=== PATIENT | female | born 1990 | race American Indian/Alaskan Native ===

== ENCOUNTER 2020-06-20 14:11 | Inpatient (IN) | payer OTHER, SELFPAY ==
[2020-06-20] MEDS ORDERED: OXYTOCIN DRIP 30,000 MILLIUNITS/500 ML BAG IV ONE (14:55)
[2020-06-20] MEDS ORDERED: MINERAL OIL 30 ML ORAL LIQD ONE (14:55)
[2020-06-20] MEDS ORDERED: LIDOCAINE (2%) 20 MG/1 ML VIAL 20 ML MDV INFILTRATI ONE ×2 (14:56→15:20)
[2020-06-20] MEDS ORDERED: LACTATED RINGERS 1,000 ML ONE (14:59)
[2020-06-20] MEDS ORDERED: ePHEDrine SULFATE 50 MG/1 ML INJ IV PRN (15:20)
[2020-06-20] MEDS ORDERED: MINERAL OIL 30 ML ORAL LIQD PO PRN (15:20)
[2020-06-20] MEDS ORDERED: TERBUTALINE 1 MG/1 ML INJ SUB-Q PRN (15:20)
[2020-06-20] MEDS ORDERED: ONDANSETRON 4 MG/2 ML INJ IV PRN (15:20)
[2020-06-20] MEDS ORDERED: BUTORPHANOL 2 MG/1 ML INJ IV PRN (15:20)
[2020-06-20] MEDS ORDERED: fentaNYL 100 MCG/2 ML INJ IV PRN (15:20)
[2020-06-20] MEDS ORDERED: LACTATED RINGERS 1,000 ML IV SCH (15:30)
--- NOTE | 2020-06-20 15:39 | History and Physical Report ---
History of Present Illness Date of examination: 06/20/20 Date of admission: 06/20/2020 Chief complaint: SROM History of present illness: 30 yo, @ 39.6 wks, initiated care with [facility] at 9.2 wks gestation. Her has been complicated by anemia. She presents to [facility] with reports of frequent painful ctxs starting around 0600 this am. She reports positive FM. Denies VB or LOF. Labs: AB+, antibody negative; HIV negative; rubella non-immune; RPR negative; HBsAg negative; PAP smear negative; GC/Chlamydia negative; AFP negative; 1 hr gtt - 106; GBS negative. Past History Past Medical History: other (anemia) Past Surgical History: no surgical history Family/Genetic History: none Social history: , lives with family, full code. denies: smoking, alcohol abuse, prescription drug abuse, IV drug use - Obstetrical History Expected Date of Delivery: 06/21/20 Actual Gestation: 39 Week(s) 6 Day(s) : 3 Para: 2 Hx # Term Pregnancies: 2 Number of Pregnancies: 0 Spontaneous Abortions: 0 Induced : 0 Number of Living Children: 2 #1 Gender: Male year: Method of Delivery: Vaginal Gestational age at delivery: 40 Complications: none #2 Gender: Male year: 2,018 Method of Delivery: Vaginal Gestational age at delivery: 40 Complications: none Medications and Allergies Allergies Allergy/AdvReac Type Severity Reaction Status Date / Time No Known Allergies Allergy Unverified 06/20/20 15:38 Active Meds: Active Medications Butorphanol Tartrate (Stadol) 2 mg IV Q2H PRN PRN Reason: Pain , Severe (7-10) Ephedrine Sulfate (Ephedrine Sulfate) 10 mg IV Q2M PRN PRN Reason: Hypotension Fentanyl (Sublimaze) 100 mcg IV Q2H PRN PRN Reason: Pain,Severe (7-10) LABOR PAIN Oxytocin/Sodium Chloride (Pitocin/Ns 30 Unit/500ml) 30 units in 500 mls @ 2 mls/hr IV TITR OSMAN; Protocol Lactated Ringer's (Lactated Ringers) 1,000 mls @ 125 mls/hr IV DIRECT OSMAN Oxytocin/Sodium Chloride (Pitocin/Ns 30 Unit/500ml) 30 units in 500 mls @ 40 mls/hr IV TITR OSMAN; Protocol Lidocaine (Xylocaine 2%) 20 ml INFILTRATI ONCE ONE Stop: 06/20/20 15:21 Mineral Oil (Mineral Oil) 30 ml PO QHS PRN PRN Reason: Constipation Ondansetron HCl (Zofran) 4 mg IV Q8H PRN PRN Reason: Nausea And Vomiting Terbutaline Sulfate (Brethine) 0.25 mg SUB-Q ONCE PRN PRN Reason: Hyperstimulation/Hypertonicity Review of Systems All systems: negative Genitourinary: contractions Rectal Exam: deferred - Vital Signs Vital signs: Vital Signs Pulse Pulse Ox 105 H 100 06/20/20 15:11 06/20/20 15:11 Temp Pulse Resp BP Pulse Ox 98.8 F 103 H 18 129/77 100 06/20/20 15:19 06/20/20 15:31 06/20/20 15:19 06/20/20 15:19 06/20/20 15:31 - Physical Exam Breasts: Positive: normal Cardiovascular: Regular rate Lungs: Positive: Normal air movement Abdomen: Positive: other (gravid) Genitourinary (Female): Positive: normal perenium Uterus: Positive: enlarged (S=D) Extremities: Positive: normal Deep Tendon Reflex Grade: Normal +2 - Obstetrical FHR: category 1 Uterine Contraction Monitor Mode: External Cervical Dilatation: 6 (vertex) Cervical Effacement Percentage: 80 station: -2 Uterine Contraction Pattern: Irregular Uterine Tone Measurement Phase: Resting Uterine Contraction Intensity: Moderate Results All other labs normal. Assessment and Plan - Patient Problems (1) Active labor at term Current Visit: Yes Status: Acute Plan to address problem: Admit to L & D AROM @ 1645, clear fluids Pain meds as desired as ordered Anticipate
[2020-06-20] MEDS ORDERED: OXYTOCIN DRIP 30 UNITS/500 ML BAG IV SCH ×2 (16:00)
[2020-06-20 17:25] LABS: Hematocrit 37.2 % (30.3-42.9); Hemoglobin 12.8 gm/dl (10.1-14.3); Mean Corpuscular HGB Conc 35 % (30-34); Mean Corpuscular Volume 92 fl (79-97); Platelet Count 172 K/mm3 (140-440); Red Blood Count 4.03 M/mm3 (3.65-5.03); Red Cell Distribution Width 13.7 % (13.2-15.2)
[2020-06-20] MEDS ORDERED: diphenhydrAMINE 25 MG CAP PO PRN (19:11)
[2020-06-20] MEDS ORDERED: PROMETHAZINE 25 MG TAB PO PRN (19:11)
[2020-06-20] MEDS ORDERED: LANOLIN/ZINC/DIMETHICONE (LANSINOH) 7 GM TP PRN (19:11)
[2020-06-20] MEDS ORDERED: MAGNESIUM HYDROXIDE (MOM) ORAL LIQD UDC PO PRN (19:11)
[2020-06-20] MEDS ORDERED: oxyCODONE /ACETAMINOPHEN 5-325MG TAB PO PRN (19:11)
[2020-06-20] MEDS ORDERED: WITCH HAZEL/ GLYCERIN PAD TP PRN (19:11)
--- NOTE | 2020-06-20 19:19 | Procedure Note ---
OB Delivery Note - Delivery Date of Delivery: 06/20/20 (1853) Surgeon: SANTOS RING (STEPHEN) Estimated blood loss: 200cc - Vaginal Delivery presentation: vertex, compound (Right hand) Delivery position: OA (DORA) Intrapartum events: none Delivery induction: none Delivery augmentation: rupture of membranes (AROM @ 1645) Delivery monitor: external FHT, external uterine Route of delivery: Delivery placenta: spontaneous (1858, nader) Delivery cord: 3 umbilical vessels Episiotomy: none Delivery laceration: none Anesthesia: none Delivery comments: of viable, crying female infant placed directly to maternal abdomen. Cord double clamped, cut by FOB. Placental spontaneously delivered, nader, disposed per hospital policy. Uterus firm @ U-3, hemostasis maintained. Perineum intact. Mother and baby safe, stable and left in care of RN. - A at 1 minute: 8 at 5 minutes: 9 Gender: Female (Weight: 2989 gms (6lbs 9.4ozs) 18.25 inches)
[2020-06-20] MEDS: IBUPROFEN 600 MG TAB PO SCH (20:31)
[2020-06-21] MEDS: IBUPROFEN 600 MG TAB PO SCH ×3 (01:07→17:32)
[2020-06-21 07:26] LABS: Hematocrit 37.2 % (30.3-42.9); Hemoglobin 12.6 gm/dl (10.1-14.3)
[2020-06-21] MEDS: PRENATAL VIT27-FE FUMARATE-FOLIC ACID VIT TAB PO SCH (10:38)
--- NOTE | 2020-06-21 10:42 | Progress Note ---
Assessment and Plan A: Day 1 Stable P: Follow routine orders Encouraged increased ambulation Desires Depo prior to discharge D/C in the a.m. Subjective - Subjective Date of service: 06/21/20 Principal diagnosis: s/p Day 1 Patient reports: appetite normal, voiding normally, pain well controlled, ambulating normally [place]: doing well, bottle feeding (and ) Objective - Vital Signs Latest vital signs: Vital Signs Temp Pulse Resp BP BP Pulse Ox 06/21/20 08:55 97.9 F 84 20 107/71 06/21/20 05:28 98.2 F 84 20 96/65 100 06/21/20 02:07 18 06/21/20 01:07 18 06/21/20 00:44 98.2 F 20 110/67 06/20/20 21:41 98.4 F 108 H 18 115/71 95 06/20/20 21:31 18 06/20/20 20:51 91 H 122/84 06/20/20 20:36 96 H 113/69 06/20/20 20:31 18 06/20/20 20:01 98.7 F 90 117/70 06/20/20 19:52 46 L 78 L 06/20/20 19:46 122 H 85 06/20/20 19:30 80 79 L 06/20/20 19:22 75 110/68 75 L 06/20/20 19:13 91 06/20/20 18:59 84 06/20/20 18:56 100 06/20/20 18:51 125 H 100 06/20/20 18:46 123 H 100 06/20/20 18:41 122 H 100 06/20/20 18:36 129 H 100 06/20/20 18:31 124 H 100 06/20/20 18:26 125 H 98 06/20/20 18:21 121 H 125/75 99 06/20/20 18:16 122 H 99 06/20/20 18:11 129 H 99 06/20/20 18:06 131 H 99 06/20/20 18:01 117 H 97 06/20/20 17:56 120 H 98 06/20/20 17:52 117 H 128/84 06/20/20 17:51 125 H 98 06/20/20 17:46 121 H 99 06/20/20 17:41 121 H 98 06/20/20 17:36 126 H 98 06/20/20 17:31 118 H 98 06/20/20 17:26 130 H 99 06/20/20 17:21 119 H 151/73 98 06/20/20 17:16 127 H 99 06/20/20 17:11 98 H 99 06/20/20 17:06 122 H 99 06/20/20 17:02 98.0 F 18 06/20/20 17:01 119 H 98 06/20/20 16:56 130 H 142/85 99 06/20/20 16:51 121 H 120/57 98 06/20/20 16:46 118 H 99 06/20/20 16:41 109 H 99 06/20/20 16:36 104 H 98 06/20/20 16:31 106 H 98 06/20/20 16:26 112 H 98 06/20/20 16:22 109 H 124/70 06/20/20 16:21 121 H 99 06/20/20 16:17 18 06/20/20 16:16 112 H 97 06/20/20 16:11 110 H 97 06/20/20 16:06 113 H 99 06/20/20 16:01 110 H 99 06/20/20 15:58 115 H 131/75 06/20/20 15:56 126 H 100 06/20/20 15:53 117 H 131/50 06/20/20 15:51 124 H 98 06/20/20 15:46 99 H 100 06/20/20 15:41 108 H 99 06/20/20 15:36 101 H 98 06/20/20 15:31 103 H 100 06/20/20 15:26 114 H 100 06/20/20 15:21 109 H 99 06/20/20 15:19 98.8 F 113 H 18 129/77 06/20/20 15:16 117 H 100 06/20/20 15:11 105 H 100 Intake and Output 06/20/20 06/21/20 06/21/20 22:59 06:59 14:59 Intake Total 3.200 240 120 Output Total 300 Balance 3.200 -60 120 Intake: IV 3.200 PITOCin/NS 30 UNIT/500ML 3.200 30 units In 500 ml @ 2 mls/hr IV TITR OSMAN Rx#: [id number] Oral 240 120 Output: Urine 300 Void 300 Other: Total, Intake Amount 240 120 Total, Output Amount 300 # Voids Void 3 1 Estimated Blood Loss 200 - Exam Breasts: Present: normal Cardiovascular: Present: Regular rate, Normal S1, Normal S2 Lungs: Present: Clear to auscultation, Normal air movement Abdomen: Present: normal appearance, soft, normal bowel sounds Uterus: Present: normal, firm, fundal height below umbilicus Extremities: Present: normal - Labs Labs: Abnormal lab results 06/20/20 Range/Units 15:16 WBC 12.5 H (4.5-11.0) K/mm3 MCHC 35 H (30-34) %
--- NOTE | 2020-06-21 10:46 | Discharge Summary ---
Providers - Providers Date of Admission: 06/20/20 15:20 Date of discharge: 06/22/20 Attending physician: ULI WRIGHT JR, MD Primary care physician: ULI WRIGHT JR, MD Hospitalization Reason for admission: active labor Delivery: Episiotomy: none Laceration: none Other procedures: none complications: none Discharge diagnosis: IUP at term delivered baby: female Condition at discharge: Good Disposition: DC-01 TO HOME OR SELFCARE Plan - Provider Discharge Summary Activity: routine, no sex for 6 weeks, no heavy lifting 4 weeks, no strenuous exercise Diet: routine Instructions: routine Additional instructions: [] Smoking cessation referral if applicable(refer to patient education folder for contact #) [] Refer to [facility] Booklet Call your doctor immediately for: * Fever > 100.5 * Heavy vaginal bleeding ( >1 pad per hour) * Severe persistent headache * Shortness of breath * Reddened, hot, painful area to leg or breast * Drainage or odor from incision. * Keep incision clean and dry at all times and follow doctor's instructions regarding bathing/showering - Follow up plan Follow up: ULI WRIGHT JR, MD [Primary Care Provider] - 6 Weeks
[2020-06-21] MEDS ORDERED: medroxyPROGESTERone ACETATE 150 MG/ML SYRINGE IM SCH (11:00)
[2020-06-22] MEDS: IBUPROFEN 600 MG TAB PO SCH (05:10)
[2020-06-22] MEDS: PRENATAL VIT27-FE FUMARATE-FOLIC ACID VIT TAB PO SCH (09:41)
[2020-06-22 13:00] VITALS: BP 116/68
== END 2020-06-22 12:53 | disposition home or self-care (01) | DRG 807 ==
LOC: LD 14:11 → TRG 14:11 → APU 14:12 → TRG 15:20 → LD 15:20 → OB 22:56
PROVIDERS: ADMIT Obstetrics & Gynecology; ATTEND Obstetrics & Gynecology
PROC: 10E0XZZ Delivery of Products of Conception, External Approach (ICD-10-PCS; principal; 2020-06-20)
PROC: 10907ZC Drainage of Amniotic Fluid, Therapeutic from Products of Conception, Via Natural or Artificial Opening (ICD-10-PCS; 2020-06-20)
DX: O99.02 Anemia complicating childbirth (principal); Z37.0 Single live birth; Z3A.39 39 weeks gestation of pregnancy; D64.9 Anemia, unspecified
CPT/HCPCS: 36415; 85014; 85018; 85027; 86850; 86900; 86901; 96360; 96361; 96374; 96376; G0378; J0595; J2590; J3010